=== PATIENT | male | born 2000 | race Caucasian/White ===

== ENCOUNTER 2021-10-29 20:32 | Emergency (ER) | payer SELFPAY ==
--- NOTE | ~2021-10-29 | XR_ITS ---
EXAMINATION: XR chest 1V portable DATE: 10/29/2021 20:55 INDICATION: Shortness of breath and productive cough TECHNIQUE: frontal view of the chest was obtained. COMPARISON: None FINDINGS: The lungs are clear with no focal airspace opacities, pulmonary edema, pleural effusion or pneumothor ax. The cardiomediastinal silhouette is normal. Visualized bones and soft tissues are unremarkable. IMPRESSION: 1. No acute cardiopulmonary disease. Reviewed, dictated and finalized at location H. 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
[2021-10-29 20:34] VITALS: BP 118/83; PULSE 117; RESP 20; TEMP 37.2; O2SAT 98
--- NOTE | 2021-10-29 21:12 | ED.URI ---
HPI - URI/Sore Throat General Chief Complaint: Upper Respiratory Infection Stated Complaint: SOB, congestion, coughing up brown stuff Time Seen by Provider: 10/29/21 21:09 Source: patient Mode of arrival: ambulatory Limitations: no limitations History of Present Illness MD elicited complaint: fever, cough, sore throat, rhinorrhea and nasal congestion Onset (ago): day(s) (3) Consistency: constant Severity: moderate Description of mucous: green and other (brown) Exacerbating factors: nothing Relieving factors: nothing Review of Systems Review of Systems: All systems reviewed & are unremarkable except as noted in HPI and below Constitutional: Constitutional: Reports as per HPI Eyes: Eyes: Denies blurry vision, Denies change in vision and Denies loss of vision ENT: Denies dizziness, Denies ear discharge, Denies headache(s), Denies lip swelling, Denies epistaxis, Denies neck pain, Denies throat swelling and Denies tongue swelling Cardiovascular: Cardiovascular: Denies chest pain, Denies chest pain at rest, Denies chest pain with activity, Denies diaphoresis, Denies rapid heart rate, Denies edema, Denies irregular heart rhythm, Denies lightheadedness, Denies palpitations, Denies dyspnea and Denies dyspnea on exertion Respiratory: Respiratory: Denies chest congestion, Denies hemoptysis, Denies dyspnea and Denies dyspnea on exertion Gastrointestinal: Gastrointestinal: Denies abdominal pain, Denies melena, Denies hematochezia, Denies diarrhea, Denies nausea, Denies vomiting and Denies hematemesis Musculoskeletal: Musculoskeletal: Denies abnormal gait, Denies deformity, Denies joint swelling, Denies limited range of motion, Denies neck pain and Denies numbness Neurologic: Denies Abnormal speech present, Denies abnormal gait, Denies confusion, Denies dizziness, Denies headache(s), Denies focal weakness, Denies loss of vision, Denies numbness, Denies Other visual disturbances, Denies Sensory deficit (Neuro) and Denies weakness Psychiatric: Psychiatric: Denies confusion, Denies depression, Denies auditory hallucinations, Denies homicidal ideation and Denies suicidal ideation Endocrine: Endocrine: Denies cold intolerance, Denies excessive sweating, Denies fatigue, Denies heat intolerance and Denies palpitations Hematologic/Lymphatic: Hematologic/Lymphatic: Denies easy bleeding and Denies easy bruising Allergic/Immunologic: Allergic/Immunologic: Denies lip swelling, Denies throat swelling and Denies tongue swelling PMFSH Family History Family History Grandparent Family history of malignant neoplasm of urinary bladder Social History Social History Smoking status: Never smoker Alcohol intake: never Exam Const: General: cooperative, healthy appearing, comfortable, no acute distress, well developed, alert and awake; No confusion Orientation/consciousness: oriented to person, oriented to place, oriented to time, patient oriented x3 and No confusion Limitations: no limitations HENMT: Head: normal to inspection, normocephalic and atraumatic Ears: hearing grossly normal bilaterally, TM normal on the right and TM normal on the left General nose exam: Normal external nose present, Normal nares present and Nasal discharge present Face and sinus: normal facial exam Mouth: Yes Normal oral and palatal mucosa present, Yes lip normal, Yes tongue normal and Yes oropharynx normal Throat: posterior oropharynx normal, tonsils normal and uvula midline Eyes: General: appearance normal, both eyes and all related structures Pupils: Equal, round and reactive pupils present EOM: EOMs intact bilaterally Neck: Neck: normal visual inspection, full ROM, no lymphadenopathy and no meningeal signs Chest: Chest palpation & inspection: normal inspection of the chest Resp: Effort & Inspection: normal respiratory effort, able to speak in complete senten
== END 2021-10-29 22:20 | disposition home or self-care (01) ==
PROVIDERS: Emergency Provider Emergency Medicine; PCP Family Medicine
DX: J06.9 Acute upper respiratory infection, unspecified (principal)
CPT/HCPCS: 71045; 99283

== ENCOUNTER 2025-10-21 23:57 | Emergency (ER) | payer BC, SELFPAY ==
[2025-10-22 00:03] VITALS: BP 162/78; PULSE 68; RESP 18; TEMP 36.9; O2SAT 95
[2025-10-22] MEDS: FLUORESCEIN SOD 1 MG/STRIP (00:35)
[2025-10-22] MEDS: TETRACAINE HCL 0.5% OPHTH SOLN 4 ML BTL 1 DROP (00:35)
[2025-10-22] MEDS: DACRIOSE EYE IRRIGATION 118 ML BOTTLE (00:45)
--- NOTE | 2025-10-22 00:46 | ED.EYEPROB ---
HPI - Eye Problem General Chief complaint: Eye Problems Stated complaint: metal in L eye Time Seen by Provider: 10/22/25 00:25 History of Present Illness HPI Narrative: 24-year-old male presenting with metallic foreign body in his left eye. Has had this happen before with corneal rust ring. 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 Notices some eye irritation but no vision loss. Feels it in the center of his vision on the left side more so. No other symptoms. Has happened before and he sees Ophthalmology for the last time it happened was prescribed eye drops and it was removed with a slight limp. Seems to be similar event today. No systemic symptoms. Related Data Allergies Allergy/AdvReac Type Severity Reaction Status Date / Time No Known Allergies Allergy Verified 10/21/25 23:57 Review of Systems Review of Systems: As reviewed above in HPI All systems reviewed & are unremarkable except as noted in HPI and below PMFSH Family History Family History Grandparent Family history of malignant neoplasm of urinary bladder Social History Social History Smoking status: Never smoker Alcohol intake: never Exam Narrative: GENERAL: [Well-appearing, well-nourished, and in no acute distress.] HEAD: [Normocephalic, atraumatic.] EYES: pupils are equal reactive to light, extraocular movements are intact, corneal rust ring anterior left-sided lower visual axis on the left eye. Small and no evidence of perforation. Slit-lamp examination shows no other objects or foreign body. Seems to be very anterior without any overt oxidation surrounding. Pupils reactive and no injury otherwise on exam. ENT: Nares clear, no rhinorrhea or epistaxis. Mucous membranes moist. NECK: Supple. CHEST: [No respiratory distress.] EXTREMITIES: Normal range of motion. [No edema.] SKIN: Warm, dry, no rash. NEURO: [No focal deficits]. Alert and oriented [x3.] PSYCH: [Normal mood and affect.] Course Vital Signs Vital signs: Vital Signs Temperature 36.9 C 10/22/25 00:03 Pulse Rate 68 10/22/25 00:03 Respiratory Rate 18 10/22/25 00:03 Blood Pressure 162/78 H 10/22/25 00:03 Pulse Oximetry 95 10/22/25 00:03 Oxygen Delivery Room Air 10/22/25 00:03 Temperature 36.9 C 10/22/25 00:03 Pulse Rate 68 10/22/25 00:03 Respiratory Rate 18 10/22/25 00:03 Blood Pressure 162/78 H 10/22/25 00:03 Pulse Oximetry 95 10/22/25 00:03 Oxygen Delivery Room Air 10/22/25 00:03 Procedures FB Removal Eye Foreign Body #1: Foreign Body Removal Date: 11/15/25 Foreign Body Removal Time: 00:52 Time Out performed: Yes Location: eye (L) Topical anesthetic used: tetracaine Foreign body: metal Evidence of corneal penetration: No Technique: needle Procedure performed under: slit-lamp Post-procedure medication: ophthalmic antibiotic and topical anesthetic Patient tolerated procedure: well and no complications Foreign Body Removal Narrative: rust ring removed successfully under local tetracaine and needle for removal. no complications. Patient's vision is intact without any changes. No foreign body sensation left over. No pain. MDM MDM Narrative Medical decision making narrative: 24-year-old male presenting with metallic foreign body in his left eye. Has had this happen before with corneal rust ring. 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 Notices some eye irritation but no vision loss. Feels it in the center of his vision on the left side more so. No other symptoms. Has happened before and he sees Ophthalmology for the last time it happened was prescribed eye drops and it was removed with a slight limp. Seems to be similar event today. No systemic symptoms. pupils are equal reactive to light, extraocular movements are intact, corneal rust ring anterior left-sided lower visual axis on the left eye. Small and no evidence of perforation. Slit-lamp examination shows no other objects or foreign body. Seems to be very anterior without any overt oxidation surrounding. Pupils reactive and no injury otherwise on exam. Rust ring removed successfully under slit lamp. Tetracaine for analgesia chief. Eye washed without any foreign body sensation left over. Given moxifloxacin eyedrops and prescription as well as [facility] in to see him next several days for re-examination. Patient given Toradol eyedrops and moxifloxacin eyedrops prescription. Safe for discharge and given return precautions. Differential Diagnosis Differential Diagnosis: Corneal rust ring, metallic foreign body in the eye, ocular injury or perforation Lab Data MDM Lab Attestation statement: I personally reviewed the patient's lab results. Discharge Plan Discharge Clinical Impression: Corneal rust ring of left eye Patient Disposition: Home Condition: Stable Instructions: Antibiotic Form, Eye Foreign Body (ED) Additional Instructions: We have removed the corneal rust ring out of your left eye. Residual metallic foreign body particles can cause read oxidation and new foreign body sensation or rust ring. Follow-up with the cutter machine tender in the next several days. We have prescribed topical eyedrops for pain and antibiotic. Return any emergent concerns. Patient Language: Kiswahili Prescriptions: New ketorolac 0.4 % drops 1 drp LEFT EYE Q6H PRN (Reason: pain) 4 Days Qty: 5 0RF moxifloxacin 0.5 % drops 1 drp LEFT EYE TID 7 Days Qty: 3 0RF Follow-up/Referrals: [facility] Lynn [Outside] - 3 Days Clinical Impression: Corneal rust ring of left eye [facility] Hannah Broussard [Outside] - 3 Days Clinical Impression: Corneal rust ring of left eye Yoseph Lo MD [Primary Care Provider, [facility]] Time of Disposition: 00:54
[2025-10-22] MEDS: MOXIFLOXACIN HCL 0.5% 3 ML OPHTH SOLN 1 DROP EACH EYE (01:15)
== END 2025-10-22 01:19 | disposition home or self-care (01) ==
LOC: ANHED 10-22 01:08
PROVIDERS: Emergency Provider Student in an Organized Health Care Education/Training Program; PCP Family Medicine
DX: T15.02XA Foreign body in cornea, left eye, initial encounter (principal); W44.8XXA Other foreign body entering into or through a natural orifice, initial encounter
CPT/HCPCS: 65222; 99283; A9270